=== PATIENT | male | born 1955 | race African-American/Black ===

== ENCOUNTER 2017-02-05 06:36 | Day surgery (SDC) | payer BC ==
[~2017-02-05] VITALS: Ht 175.3 cm; Wt 86.2 kg
[2017-02-05] VITALS (7 sets, daily range): BP systolic 120–151; BP diastolic 79–90
[2017-02-05] MEDS ORDERED: LR 1000ml 1,000 ML IV SCH ×2 (07:00→07:45)
[2017-02-05] MEDS ORDERED: Propofol 200mg/20ml IV ONE (07:00)
[2017-02-05] MEDS ORDERED: LR 1000ml ONE (07:00)
[2017-02-05] MEDS ORDERED: bp med PO (07:12)
--- NOTE | 2017-02-05 07:21 | Short Stay Surgery H&P ---
History of Present Illness History of Present Illness Chief Complaint see typed H&P HPI Lino Solitario is a 61 year old male who was admitted on for Melena Patient History Allergies: Coded Allergies: No Known Allergies (Unverified , 02/05/17) PAST MEDICAL HISTORY: Past Surgeries: Social History: Medication History Scheduled [bp med], Unknown Dose PO DAILY, (Reported) Physical Exam Vital Signs Last Vital Signs Date Time Temp Pulse Resp B/P (MAP) Pulse Ox O2 Delivery O2 Flow Rate FiO2 02/05/17 07:11 98.0 82 17 151/89 98 Room Air Plan Attestation Are the patient's medical conditions optimized for surgery? NORTH GOMEZ Feb 05, 2017 07:21
--- NOTE | 2017-02-05 07:22 | Pre-Procedure Note/Attestation ---
Pre-Procedure Note/Attestation Complete Prior to Procedure Planned Procedure: not applicable Procedure Narrative: colon Indications for Procedure Pre-Operative Diagnosis: h/o polyp, occ BRBPR Attestation I attest that I discussed the nature of the procedure; its benefits; risks and complications; and alternatives (and the risks and benefits of such alternatives ), prior to the procedure, with the patient (or the patient's legal customer service representative teller). I attest that, if there was a reasonable possibility of needing a blood transfusion, the patient (or the patient's legal customer service representative teller) was given the [facility] standardized written summary, pursuant to the Nicholas Yanira Blood Safety Act ([place] Health and Safety Code # 1645, as amended). I attest that I re-evaluated the patient just prior to the surgery and that there has been no change in the patient's H&P, except as documented below: NORTH GOMEZ Feb 05, 2017 07:22
[2017-02-05] MEDS ORDERED: LR 1000ml 1,000 ML IVLG SCH (07:39)
--- NOTE | 2017-02-05 07:42 | Anethesia Preoperative Eval ---
Anesthesia Pre-op PMH/ROS General Date of Evaluation: Feb 05, 2017 Time of Evaluation: 07:00 Anesthesiologist: Amy ASA Score: ASA 2 Mallampati Score Class I : Soft palate, uvula, fauces, pillars visible Class II: Soft palate, uvula, fauces visible Class III: Soft palate, base of uvula visible Class IV: Only hard plate visible Mallampati Classification: Class II Surgeon: Heidi Diagnosis: Melena Surgical Procedure: Colonoscopy Family History: no anesthesia problems Allergies: Coded Allergies: No Known Allergies (Unverified , 02/05/17) Medications: see eMAR Past Medical History Cardiovascular: Reports: HTN, Denies: CAD, NE, valve dz, arrhythmia, other Pulmonary: Denies: asthma, COPD, DAVE, other Gastrointestinal/Genitourinary: Denies: GERD, CRI, ESRD, other Neurologic/Psychiatric: Denies: dementia, CVA, depression/anxiety, TIA, other Endocrine: Denies: DM, hypothyroidism, steroids, other HEENT: Denies: cataract (L), cataract (R), glaucoma, [place] (L), [place] (R), other Hematology/Immune: Denies: anemia, DVT, bleeding disorder, other Musculoskeletal/Integumentary: Denies: OA, RA, DJD, DDD, edema, other PMH Narrative: HTN, melena PSxH Narrative: Ankle surgery, colonoscopy Anesthesia Pre-op Phys. Exam Physician Exam Last Vital Signs Date Time Temp Pulse Resp B/P (MAP) Pulse Ox O2 Delivery O2 Flow Rate FiO2 02/05/17 07:11 98.0 82 17 151/89 98 Room Air Constitutional: NAD Neurologic: CN 2-12 intact Cardiovascular: RRR, no M/R/G Respiratory: CTA Gastrointestinal: S/NT/ND Airway Exam Mallampati Score: Class II MO: full ROM: full Dentures: upper Anesthesia Pre-op A/P Risk Assessment & Plan Assessment: Healthy hypertensive male for colonoscopy Plan: GA, TIVA Status Change Before Surgery: No Pre-Antibiotics Drug: None OLESYA OTOOLE M.D. Feb 05, 2017 07:42
--- NOTE | 2017-02-05 07:43 | Immediate Post-Op Evaluation ---
Immediate Post-Op Evalulation Immediate Post-Op Evalulation Procedure: Colonoscopy Date of Evaluation: Feb 05, 2017 Time of Evaluation: 08:05 IV Fluids: 200 Blood Pressure Systolic: 123 Blood Pressure Diastolic: 79 Pulse Rate: 80 Respiratory Rate: 17 O2 Sat by Pulse Oximetry: 98 Temperature (Fahrenheit): 97.2 Pain Score (1-10): 0 Nausea: No Vomiting: No Complications No complication Patient Status: awake, patent, none Hydration Status: adequate Drug: None OLESYA OTOOLE M.D. Feb 05, 2017 07:43
[2017-02-05] MEDS ORDERED: fentaNYL 100 mcg/2 mL IV PRN (07:45)
--- NOTE | 2017-02-05 08:03 | 48 Hour Post Anesthesia Eval ---
Post Anesthesia Evaluation Procedure: Colonoscopy Date of Evaluation: Feb 05, 2017 Time of Evaluation: 08:30 Blood Pressure Systolic: 124 0: 81 Pulse Rate: 78 Respiratory Rate: 18 O2 Sat by Pulse Oximetry: 100 Airway: patent Nausea: No Vomiting: No Pain Intensity: 0 Hydration Status: adequate Cardiopulmonary Status: Stable Mental Status/LOC: patient returned to baseline Follow-up Care/Observations: As per GI Post-Anesthesia Complications: No anesthetic complication Follow-up care needed: N/A OLESYA OTOOLE M.D. Feb 05, 2017 08:03
--- NOTE | 2017-02-05 08:18 | Endoscopy Procedure Note ---
Endoscopy Procedure Note Indication for Procedure: BRB Procedures Performed: colonoscopy Operative Findings/Diagnosis: cecum polyp x1, desc polyp x 3 - all 2-3 mm Specimen: yes Pt Tolerated Procedure Well: Yes Estimated Blood Loss: none Anesthesiologist: see report Anesthesia: MAC, moderate sedation Medication Given: see anesthesia record Implant(s) used?: No 50 yrs or older w/o bx or poly: No 10yrs. F/U not recommended: No If not recommended, why?: Above average risk 10 yrs. F/U needed: No 18 years or older w/prev. colo: Yes <3yrs. since last colonoscopy: No Med reason:<3 yrs.: System Reason:<3 yrs.: Last colonoscopy >= to 3yrs: Yes NORTH GOMEZ Feb 05, 2017 08:18
--- NOTE | 2017-02-05 08:19 | Brief Operative Note ---
Immediate Post Operative Note Operative Note Chief Complaint: BRB Pre-op Diagnosis: h/o polyp, occ BRBPR Procedure: colon / Bx Post-op Diagnosis: colon polyp x 4 Surgeon: mendez Anesthesiologist: see report Specimen: yes Complications: none Condition: stable Fluids: see report Estimated Blood Loss: none Drains: none Implant(s) used?: No NORTH GOMEZ Feb 05, 2017 08:19
--- NOTE | 2017-02-05 23:45 | Procedure Note ---
DATE OF PROCEDURE: 02/05/2017 PROCEDURE: Colonoscopy with biopsy. SURGEON: Vernell Gordon M.D. ANESTHESIA: Please see the separate anesthesiologist notes for details. PRE-ENDOSCOPIC DIAGNOSIS: Hematochezia. POST-ENDOSCOPIC DIAGNOSES: 1. Diminutive polyp in the cecum, status post biopsy removal. 2. Normal terminal ileum noted to 5 centimeters. 3. Three diminutive polyps at 45 centimeters, status post biopsy removal. 4. [id number] internal hemorrhoids. DESCRIPTION OF PROCEDURE: The procedure, its risks, indications, alternatives, and possible complications including, but not limited to, bleeding, infection, perforation, , and anesthesia complications were explained to the patient and informed consent was obtained. Rectal exam was done and then the colonoscope was introduced in the rectum and advanced to the terminal ileum. Findings were as described above. The colonoscope was removed. The patient was sent to recovery in good condition. COMPLICATIONS: None. RECOMMENDATIONS: 1. Follow up biopsy results. 2. High-fiber diet. 3. Outpatient followup. Thank you for asking me to participate in the care of this patient. Vernell Gordon M.D. DR: SHERLYN JOB#: [id number] CC: Luana Guzman M.D. ; FAX#: [phone]
== END 2017-02-05 09:00 | disposition home or self-care (01) ==
LOC: GAS 06:36
DX: K63.5 Polyp of colon (principal); D12.0 Benign neoplasm of cecum; K64.8 Other hemorrhoids; I10 Essential (primary) hypertension
CPT/HCPCS: 45380; J2704; J7120; 94003; 94150